=== PATIENT | female | born 1960 | race Caucasian/White ===

== ENCOUNTER → 2016-09-10 | Outpatient (CLI) | payer BC ==
--- OUTSIDE RECORDS SUMMARY | 2016-09-10 09:09 | XMS REPORT | Continuity of Care Document ---
Author Author [facility] Organization [facility] Address Unknown Phone Unavailable Allergies Medications Problems Date Dx Coded Attending Type Code Diagnosis Diagnosed By 09/10/2014 MARCIE ALTMAN MD Ot V76.12 09/13/2014 MARCIE ALTMAN MD Ot V76.12 09/13/2014 MARCIE ALTMAN MD Ot 793.80 09/12/2015 JERMAINE MUKHERJEE APRN Ot R06.02 Procedures Results Encounters ACCT No. Visit Date/Time Discharge Status Pt. Type Provider Facility Loc./Unit Complaint [id number] 12/03/2014 07:37:00 2014 23:59:59 CLS Outpatient STACIE BALL MD [facility] RAD [id number] 09/12/2014 07:45:00 2014 23:59:59 CLS Preadmit MARCIE ALTMAN MD [facility] RAD [id number] 09/07/2014 07:28:00 2014 23:59:59 CLS Outpatient MARCIE ALTMAN MD [facility] RAD [id number] 04/28/2013 09:29:00 2012 23:59:59 CLS Outpatient [id number] 08/26/2015 12:01:00 ACT Outpatient JERMAINE MUKHERJEE APRN [facility]
--- NOTE | 2016-09-11 12:36 | Diagnostic Imaging Report ---
Bilateral screening mammogram. The current study was also evaluated with a Computer Aided Detection (CAD) system. INDICATION: Screening. No current complaints stated on the questionnaire. COMPARISON: 09/07/2014. FINDINGS: The breasts are composed of scattered fibroglandular densities. There are occasional benign-appearing calcifications. Allowing for technique and positional differences, no suspicious change is seen. IMPRESSION: No significant change. ACR BI-RADS Category 2: Benign findings. Result letter will be mailed to the patient. Note: At least 10% of breast cancer is not imaged by mammography. Dictated by: Dictated on workstation # [id number]
== END ==
LOC: RAD 09:06
PROVIDERS: ATTEND Nurse Practitioner Family
DX: Z12.31 Encounter for screening mammogram for malignant neoplasm of breast (principal)
CPT/HCPCS: 77067

== ENCOUNTER → 2017-09-13 | Outpatient (CLI) | payer BC ==
--- NOTE | 2017-09-13 12:23 | Diagnostic Imaging Report ---
INDICATION: Routine screening. COMPARISON: 09/10/2016 and 09/07/2014. TECHNIQUE: Screening digital mammography was performed bilaterally with a Computer Aided Detection (CAD) system. FINDINGS: Moderate parenchymal heterogeneity and increased density are noted. The overall parenchymal pattern appears to be stable. No dominant mass or malignant appearing microcalcifications are seen. There are benign calcifications present. The axillae are unremarkable. IMPRESSION: No mammographic features suspicious for malignancy are identified. ACR BI-RADS Category 2: Benign findings. Result letter will be mailed to the patient. Note: At least 10% of breast cancer is not imaged by mammography. Dictated by: Dictated on workstation # [id number]
== END ==
LOC: RAD 07:47
PROVIDERS: ATTEND Nurse Practitioner Family
DX: Z12.31 Encounter for screening mammogram for malignant neoplasm of breast (principal)
CPT/HCPCS: 77067

== ENCOUNTER → 2018-10-24 | Outpatient (CLI) | payer BC ==
--- NOTE | 2018-10-24 09:35 | Diagnostic Imaging Report ---
Indication: Routine screening. Comparison is made with prior mammogram from 09/13/2017 and 09/10/2016. 2-D and 3-D bilateral screening mammography was performed with CAD. Both breasts are heterogeneously dense, limiting the sensitivity of mammography. The parenchymal pattern is stable. No mass or malignant-appearing microcalcifications are seen. The axillae are unremarkable. Impression: BI-RADS category 2 No mammographic features suspicious for malignancy are identified. ACR BI-RADS Category 2: Benign findings. Result letter will be mailed to the patient. Note: At least 10% of breast cancer is not imaged by mammography. Dictated by: Dictated on workstation # [id number]
== END ==
LOC: RAD 07:27
PROVIDERS: ATTEND Family Medicine
DX: Z12.31 Encounter for screening mammogram for malignant neoplasm of breast (principal)
CPT/HCPCS: 77067

== ENCOUNTER → 2019-04-20 | Outpatient (CLI) | payer BC ==
[2019-04-20 12:57] LABS: BASOPHILS % (AUTO) 0 % (0-10); EOSINOPHILS # (AUTO) 0.1 10^3/uL (0.0-0.3); EOSINOPHILS % (AUTO) 1 % (0-10); HEMATOCRIT 41 % (35-52); HEMOGLOBIN 13.5 G/DL (11.5-16.0); LYMPHOCYTES # (AUTO) 2.5 X 10^3 (1.0-4.0); LYMPHOCYTES % (AUTO) 20 % (12-44); MEAN CORPUSCULAR HEMOGLOBIN 29 PG (25-34); MEAN CORPUSCULAR HGB CONC 33 G/DL (32-36); MEAN CORPUSCULAR VOLUME 87 FL (80-99); MEAN PLATELET VOLUME 9.2 FL (7.4-10.4); MONOCYTES % (AUTO) 8 % (0-12); NEUTROPHILS # (AUTO) 8.7 X 10^3 (1.8-7.8); NEUTROPHILS % (AUTO) 71 % (42-75); PLATELET COUNT 279 10^3/uL (130-400); RED CELL DISTRIBUTION WIDTH 13.5 % (10.0-14.5); WHITE BLOOD COUNT 12.4 10^3/uL (4.3-11.0)
[2019-04-20 13:23] LABS: ALANINE AMINOTRANSFERASE 30 U/L (0-55); ALBUMIN 4.1 GM/DL (3.2-4.5); ALKALINE PHOSPHATASE 84 U/L (40-136); BILIRUBIN,TOTAL 0.6 MG/DL (0.1-1.0); BUN/CREATININE RATIO 16; CALCIUM 9.7 MG/DL (8.5-10.1); CARBON DIOXIDE 25 MMOL/L (21-32); CHLORIDE 103 MMOL/L (98-107); CREATININE SERUM 0.75 MG/DL (0.60-1.30); GFR ESTIMATED > 60; GLUCOSE 93 MG/DL (70-105); POTASSIUM 3.7 MMOL/L (3.6-5.0); SODIUM 136 MMOL/L (135-145); TOTAL PROTEIN 7.4 GM/DL (6.4-8.2)
== END ==
LOC: LAB 12:29
PROVIDERS: ATTEND Nurse Practitioner Family
DX: R07.9 Chest pain, unspecified (principal)
CPT/HCPCS: 36415; 80053; 84484; 85025; 93005

== ENCOUNTER → 2019-04-21 | Outpatient (CLI) | payer BC | LOC: LAB 13:43 | PROVIDERS: ATTEND Nurse Practitioner Family | DX: R07.9 Chest pain, unspecified (principal) | CPT/HCPCS: 36415; 84484 ==

== ENCOUNTER → 2019-12-12 | Outpatient (CLI) | payer BC ==
--- NOTE | 2019-12-12 21:33 | Diagnostic Imaging Report ---
Indication: Routine screening. Comparison is made with prior mammograms from 10/24/2018 and 09/13/2017. 2-D and 3-D bilateral screening mammography was performed with CAD. Both breasts are heterogeneously dense, limiting the sensitivity of mammography. Benign calcifications in the right breast are again noted. No mass or malignant appearing microcalcifications are identified. Axillae are unremarkable. IMPRESSION: BI-RADS Category 2 No mammographic features suspicious for malignancy are identified. ACR BI-RADS Category 2: Benign findings. Result letter will be mailed to the patient. Note: At least 10% of breast cancer is not imaged by mammography. Dictated by: Dictated on workstation # [id number]
== END ==
LOC: RAD 15:15
PROVIDERS: ATTEND Nurse Practitioner Family
DX: Z12.31 Encounter for screening mammogram for malignant neoplasm of breast (principal)
CPT/HCPCS: 77063; 77067

== ENCOUNTER → 2020-02-12 | Outpatient (CLI) | payer BC ==
[~2020-02-12] MED LIST: ESTR0.5T PO; HYDR25TA4 PO; OLME40TA18 PO; SIMV10TA26 PO; VERA120T10 PO
== END ==
LOC: LABNPT 08:30
PROVIDERS: ATTEND Internal Medicine
DX: Z01.818 Encounter for other preprocedural examination (principal); Z20.828 Contact with and (suspected) exposure to other viral communicable diseases
CPT/HCPCS: 87635

== ENCOUNTER 2020-02-13 09:40 | Outpatient (RCR) | payer BC ==
[~2020-02-13] VITALS: Ht 162 cm; Wt 98.0 kg
== END 2020-02-13 09:41 | disposition home or self-care (01) ==
LOC: PREOP 09:40
PROVIDERS: ATTEND Internal Medicine
DX: Z01.818 Encounter for other preprocedural examination (principal); R19.7 Diarrhea, unspecified; Z20.828 Contact with and (suspected) exposure to other viral communicable diseases

== ENCOUNTER 2020-02-16 09:25 | Day surgery (SDC) | payer BC ==
--- NOTE | 2020-02-12 08:26 | HISTORY AND PHYSICAL ---
DATE OF SERVICE: COLONOSCOPY HISTORY AND PHYSICAL HISTORY OF PRESENT ILLNESS: The patient is 59-year-old white female referred by JOSE G Bloom from Dr. Castro's office for colonoscopic evaluation of diarrhea with occult positive blood in stool. The patient reports approximately 5-week history of watery diarrhea without evidence for visible blood. She denies any associated cramping, but reports on average 10 loose stools per day. She was started on Flagyl several days ago and believes that there has been some improvement, although she has already had four stools today. She is not aware of any significant change in weight. She has no recent travel history. She did report, her last round of antibiotics was at least three months ago for which she took a 10-day course of an unknown antibiotic for reported sinus infection. The patient denies night sweats, chills or fever. PAST SURGICAL HISTORY: Significant for total abdominal hysterectomy at the age of 33. She had tonsillectomy and adenoidectomy at the age of 11. PAST MEDICAL HISTORY: Significant for hypertension, hyperlipidemia, reported distant past history of possible sarcoid for which there had been no activity for many years. There have been no other recent medication changes. She has no travel history and lives with the who is well with no diarrhea problems. SOCIAL HISTORY: She works at [employer] with no past smoking history and rare alcohol intake. FAMILY HISTORY: Grandmother had what sounds like diverticular disease, but no known history of malignancy, in her 80s. Father at the age of 84 of complications of cardiovascular disease. Mother at age 69 of what sounds like urosepsis while on biologic therapy for rheumatoid arthritis. REVIEW OF SYSTEMS: CONSTITUTIONAL: She denies night sweats, chills or fever. RESPIRATORY: The patient denies any problems with cough, wheezing or chest congestion. CARDIOVASCULAR: The patient denies chest pain, dyspnea on exertion, orthopnea, PND or pedal edema. GASTROINTESTINAL: As noted in the HPI. PHYSICAL EXAMINATION: GENERAL: Reveals pleasant white female in no acute distress. VITAL SIGNS: Weight 223 pounds, blood pressure 110/66. HEENT: Unremarkable. Mallampati 2 pharyngeal configuration. CHEST: Clear to auscultation. CARDIOVASCULAR: Revealed a regular rate and rhythm with a very soft 1 to 2/6 systolic ejection murmur heard best at second right intercostal space and left lower sternal border without evidence for pulsus, parvus or tardus. No S3 or S4 noted. ABDOMEN: Soft, supple without mass, organomegaly or tenderness. No bruits are noted. EXTREMITIES: Reveal no cyanosis, clubbing or edema. ASSESSMENT AND PLAN: The patient is being set up for diagnostic colonoscopy for evaluation of diarrhea and occult positive blood in stool. If there were no colonoscopic abnormalities, we will likely proceed with EGD evaluation to evaluate for any evidence for celiac disease. I thank you for the referral of this pleasant lady. Job ID: [id number] DocumentID: [id number] Dictated Date: 02/08/2020 18:19:05 Social Sciences Chair Date: 02/08/2020 18:52:06 Dictated By: RONALDO REEDER MD
[~2020-02-16] VITALS: Ht 162 cm; Wt 98.0 kg
[2020-02-16] MEDS ORDERED: LACTATED RINGERS 1,000 ML IV STA (09:35)
[2020-02-16] MEDS ORDERED: LACTATED RINGERS 1,000 ML IV ONE (09:36)
[2020-02-16] MEDS ORDERED: LIDOCAINE JELLY 2% 6 ML SYRINGE MM PRN (09:45)
[2020-02-16 09:48] VITALS: BP 134/87
[2020-02-16] MEDS ORDERED: PROPOFOL INJECTION 50 ML IV ONE (10:19)
[2020-02-16] MEDS ORDERED: MIDAZOLAM 2 MG/2 ML (VERSED) VIAL ONE (10:19)
[2020-02-16] MEDS ORDERED: LIDOCAINE JELLY 2% 6 ML SYRINGE ONE (10:29)
[2020-02-16 11:15] VITALS: BP 111/60
[2020-02-16 11:20] VITALS: BP 113/57
[2020-02-16 11:25] VITALS: BP 113/57
--- NOTE | 2020-02-16 11:26 | Pre-Op Note & Conscious Sedat ---
Pre-Operative Progress Note H&P Reviewed The H&P was reviewed, patient examined and no changes noted. Date H&P Reviewed: Feb 16, 2020 Time H&P Reviewed: 10:20 Conscious Sedation Pre-Proced ASA Score 2 For ASA 3 and 4: Consider anesthesia and medical clearance. Also, for patients with a history of failed moderate sedation consider anesthesia. Airway Lungs Heart ASA score ASA 1: a normal healthy patient ASA 2: a patient with a mild systemic disease (mid diabetes, controlled hypertension, obesity ASA 3: a patient with a severe systemic disease that limits activity (angina, COPD, prior Myocardial infarction) ASA 4: a patient with an incapacitating disease that is a constant threat to life (CHF, renal failure) ASA 5: a moribund patient not expected to survive 24 hrs. (ruptured aneurysm) ASA 6: a declared brain- patient whose organs are being harvested. For emergent operations, add the letter E after the classification Mallampati Classification Grade 3 Sedation Plan Analgesia, Amnesia, Plan communicated to team members, Discussed options with patient/fam, Discussed risks with patient/fam The patient is an appropriate candidate to undergo the planned procedure, sedation, and anesthesia. The patient immediately re-assessed prior to indication. RONALDO REEDER MD Feb 16, 2020 11:26
[2020-02-16 11:48] VITALS: BP 115/60
--- NOTE | 2020-02-16 12:30 | Anesthesia-General Post-Op ---
MAC Patient Condition Mental Status/LOC: Same as Preop Cardiovascular: Satisfactory Nausea/Vomiting: Absent Respiratory: Satisfactory Pain: Controlled Complications: Absent Post Op Complications Complications None Follow Up Care/Instructions Patient Instructions None needed. Anesthesiology Discharge Order Discharge Order Patient is doing well, no complaints, stable vital signs, no apparent adverse anesthesia problems. No complications reported per nursing. LYN LOPEZ CRNA Feb 16, 2020 12:30
--- NOTE | 2020-02-16 20:57 | OPERATIVE REPORT ---
DATE OF SERVICE: PANENDOSCOPY SUMMARY INDICATION FOR THE PROCEDURE: Panendoscopy is performed for evaluation of diarrhea with positive IFOB study. DESCRIPTION OF PROCEDURE: The patient was placed in the left lateral decubitus position. Prior to undergoing colonoscopy, digital rectal evaluation was performed. Anal sphincter tone was normal and the perianal reflexes intact. No abnormalities were noted on digital inspection of anal canal or distal rectal vault. The colonoscope was then inserted into the rectum and under direct visualization advanced to cecum. The cecum was identified by identification of the ileocecal valve and cecal strap. Photographic documentation was obtained. Careful inspection was made as the colonoscope withdrawn. The procedure was performed under Diprivan anesthesia. There was no evidence for internal or external hemorrhoids and the rectum was unremarkable. No evidence for inflammatory changes noted throughout the entirety of the colon. A rectal biopsy was obtained for evaluation for microscopic colitis. One diminutive sigmoid polyp was noted. It was biopsied and ablated and submitted for histopathology. No evidence for diverticular disease or inflammatory change was noted. Two other similar diminutive polyps were noted, one in the splenic flexure and the other one in the proximal transverse colon, also biopsied and ablated with no subsequent blood loss. The ascending colon and cecum were unremarkable as was the ileocecal valve. As there was no explanation for positive occult blood or diarrhea, we then proceeded with an EGD evaluation. The upper endoscope was inserted into the oral cavity and under direct visualization, esophagus was intubated. The scope was passed down the esophagus through the stomach and second portion of the duodenum. Careful inspection was made as the endoscope was withdrawn. FINDINGS: The posterior pharynx, arytenoid aperture, true and false vocal folds and epiglottis were unremarkable. The proximal and mid esophagus were unremarkable. A small hiatal hernia is present with some mild erythema at the Z line. Biopsy was obtained and submitted for histopathology. No evidence for erosive esophagitis was noted. The cardia, fundus and antrum of the stomach were unremarkable. The pylorus and pyloric channel were unremarkable. Several small abscess appearing whitish base erosions were noted. Distal along one wall of the duodenal bulb. It is along the anterior wall of the duodenal bulb. A biopsy was obtained. There was some mild erythema and loss of the usual villous appearance in the second portion of the duodenum. It was more diffuse in nature. A biopsy was obtained and submitted for histopathology. No evidence for ulceration was noted. ASSESSMENT: 1. Small hiatal hernia is present without evidence for erosive esophagitis. 2. Several shallow apices appearing erosions were noted along the anterior wall of the duodenal bulb with mild duodenitis. The patient denies aspirin, nonsteroidal use. Favor infectious etiology with biopsy is pending. The patient states that her diarrhea was abrupt in onset. Initially 10 to 12 times per day now, she is down to 3 or 4 loose stools all in the morning typically when she first wakes up without any associated cramping or blood. She has had no night sweats, chills or fever with usual energy level. The abrupt nature suggests an underlying infectious etiology of which the vast majority resolved and treated. She was advised for now to take one loperamide that she has at home at bedtime for the next week or two holding for constipation with further recommendations pending histopathology reporting. 3. In regards to colonoscopy as long as there are no suprises on histopathology would advocate repeat screening colonoscopy in 10 years. I thank you for the referral of this pleasant lady. Job ID: [id number] DocumentID: [id number] Dictated Date: 02/16/2020 12:11:53 Artificial Breeding Technician Date: 02/16/2020 20:55:29 Dictated By: RONALDO REEDER MD MTDD
== END 2020-02-16 11:55 | disposition home or self-care (01) ==
LOC: ENDO 09:25
PROVIDERS: ATTEND Internal Medicine
DX: K29.80 Duodenitis without bleeding (principal); K29.50 Unspecified chronic gastritis without bleeding; D12.3 Benign neoplasm of transverse colon; D12.5 Benign neoplasm of sigmoid colon; K22.70 Barrett's esophagus without dysplasia; I10 Essential (primary) hypertension; E78.5 Hyperlipidemia, unspecified; K44.9 Diaphragmatic hernia without obstruction or gangrene; R19.7 Diarrhea, unspecified; R19.5 Other fecal abnormalities

== ENCOUNTER → 2020-02-28 | Outpatient (CLI) | payer BC ==
--- NOTE | 2020-02-28 09:11 | Diagnostic Imaging Report ---
PROCEDURE: US Gallbladder. TECHNIQUE: Multiple Real-time grayscale images were obtained over the right upper quadrant in various projections. INDICATION: Abdominal pain and severe diarrhea. FINDINGS: The liver is normal in size at 16 cm. No discrete liver mass is identified. The portal vein is patent and shows normal direction of flow. The gallbladder is without stones or sludge. No wall thickening or biliary ductal dilatation is identified. The visualized pancreas is unremarkable. The aorta is nonaneurysmal. The IVC is patent. The right kidney is without calculus or hydronephrosis. There is no ascites. IMPRESSION: Unremarkable gallbladder ultrasound. Dictated by: Dictated on workstation # [id number]
== END ==
LOC: RAD 08:01
PROVIDERS: ATTEND Nurse Practitioner Family
DX: R19.7 Diarrhea, unspecified (principal); R10.9 Unspecified abdominal pain
CPT/HCPCS: 76705

== ENCOUNTER → 2021-03-27 | Outpatient (CLI) | payer BC ==
--- NOTE | 2021-03-27 09:23 | Diagnostic Imaging Report ---
Indication: Routine screening. Comparison is made with prior mammogram from 12/12/2019 and 10/24/2018. 2-D and 3-D bilateral screening mammography was performed with CAD. Both breasts are heterogeneously dense, limiting the sensitivity of mammography. Overall breast density appears to be increased since prior mammogram, perhaps owing to hormone replacement therapy. No mass or malignant-appearing microcalcifications are seen. There are benign calculus locations noted. Axillae are unremarkable. IMPRESSION: BI-RADS Category 2 No mammographic features suspicious for malignancy are identified. ACR BI-RADS Category 2: Benign findings. Result letter will be mailed to the patient. Note: At least 10% of breast cancer is not imaged by mammography. Dictated by: Dictated on workstation # [id number]
== END ==
LOC: RAD 07:27
PROVIDERS: ATTEND Family Medicine
DX: Z12.31 Encounter for screening mammogram for malignant neoplasm of breast (principal)
CPT/HCPCS: 77063; 77067

== ENCOUNTER → 2022-06-02 | Outpatient (CLI) | payer BC ==
[~2022-06-02] MED LIST changes: -VERA120T10 PO; +VERA120T74 PO
--- NOTE | 2022-06-02 15:37 | Diagnostic Imaging Report ---
EXAMINATION: 3D bilateral screening mammogram. The current study was also evaluated with a Computed Aided Detection (CAD) system. COMPARISON: This study was compared to the prior exams of 03/27/2021, 12/12/2019 and 10/24/2018. There are no current complaints. FINDINGS: The fibroglandular tissue in both breasts is heterogeneously dense. This does limit the sensitivity of this exam. When compared to the previous study there does not appear to have been any significant change. There is no primary or secondary sign of malignancy noted. IMPRESSION: There is no evidence for malignancy. BI-RADS CATEGORY: 1 NEGATIVE ACR BI-RADS Category 1: Negative. Result letter will be mailed to the patient. Note: At least 10% of breast cancer is not imaged by mammography. Dictated by: Dictated on workstation # [id number]
== END ==
LOC: RAD 07:23
PROVIDERS: ATTEND Family Medicine
DX: Z12.31 Encounter for screening mammogram for malignant neoplasm of breast (principal)
CPT/HCPCS: 77063; 77067

== ENCOUNTER 2022-07-23 11:04 | Outpatient (CLI) | payer BC ==
[~2022-07-23] VITALS: Ht 162.6 cm; Wt 95.5 kg
[2022-07-30] MEDS ORDERED: FURO-125 PO (07:47)
[2022-07-30] MEDS ORDERED: LACT1CAP74 PO (07:47)
[2022-07-30] MEDS ORDERED: OMEG1CAP58 PO (07:47)
[2022-07-30] MEDS ORDERED: POTA-51 PO (07:47)
[2022-07-30] MEDS ORDERED: CHOL200078 PO (07:47)
[2022-07-30] MEDS ORDERED: SPIR25TA PO (07:47)
== END 2022-07-30 07:54 | disposition home or self-care (01) ==
LOC: PREOP 11:04
PROVIDERS: ATTEND Specialist
DX: Z01.818 Encounter for other preprocedural examination (principal)

== ENCOUNTER 2022-07-31 08:01 | Day surgery (SDC) | payer BC ==
[~2022-07-31] VITALS: Ht 162.6 cm; Wt 95.5 kg
[~2022-07-31 08:01] MED LIST changes: +CHOL200078 PO; +FURO-125 PO; +LACT1CAP74 PO; +OMEG1CAP58 PO; +POTA-51 PO; +SPIR25TA PO
[2022-07-31] MEDS: TETRACAINE 0.5% OPHTH SOLN 4 ML BTL (SINGLE DOSE ONLY) OU PRN ×4 (08:28→08:44)
[2022-07-31] MEDS ORDERED: POVIDONE (BETADINE) OPHTH SOLN 5% 30 ML OP ONE (08:30)
[2022-07-31] MEDS ORDERED: MOXIFLOXACIN OPHTH SOLN 5 MG/ML 0.3 ML SYRINGE OP ONE (08:30)
[2022-07-31] MEDS ORDERED: TIMOLOL 0.5% (CATARACTS) 0.3 ML BTL OU PRN (08:30)
[2022-07-31] MEDS: PHENYLEPHRINE 10% OPHTH (NEO-SYN) 5 ML BTL OU SCH ×3 (08:34→08:44)
[2022-07-31] MEDS: TROPICAMIDE 1% OPH SOLN (MYDRIACYL) 15 ML BTL OP SCH ×3 (08:34→08:44)
[2022-07-31 08:36] VITALS: BP 162/88
[2022-07-31] MEDS ORDERED: MIDAZOLAM 2 MG/2 ML (VERSED) VIAL ONE (08:45)
--- NOTE | 2022-07-31 09:00 | Ophthalmologist Pre-Op Note ---
Pre-Operative Progress Note H&P Reviewed The H&P was reviewed, patient examined and no changes noted. Date H&P Reviewed: Jul 31, 2022 Time H&P Reviewed: 09:00 Pre-Op Dx Cataract, Right Eye JINA CAI MD Jul 31, 2022 09:00
--- NOTE | 2022-07-31 09:18 | Ophthalmology Operative Report ---
Cataract removal/placement IOL PREOPERATIVE DIAGNOSIS: Cataract Right Eye POSTOPERATIVE DIAGNOSIS: Cataract Right Eye PROCEDURE: Cataract removal and placement of posterior chamber implant, right eye SURGEON: Lv Cai ANESTHESIA: Topical with sedation COMPLICATIONS: None ESTIMATED BLOOD LOSS: Minimal DESCRIPTION OF PROCEDURE: After proper informed consent was obtained, the patient, a 61 female, was taken to the Operating Room and the right eye was anesthetized with tetracaine. The right eye was then prepped and draped in the usual manner. A wire lid speculum was placed. A paracentesis was made at the left hand position. Preservative free lidocaine was injected into the anterior chamber followed by viscoelastic. A clear corneal incision was made in the temporal position. A capsulorrhexis was preformed and the central nuclear and cortical material were removed. The posterior capsule was polished and John Paul 19.0 AU00T0 IOL was placed into the capsular bag. The residual viscoelastic was aspirated and balanced saline solution was injected into the anterior chamber. Moxifloxacin was injected into the anterior chamber. The wound was checked and found to be water tight. The patient tolerated the procedure well without complications. LV CAI MD Jul 31, 2022 09:18
[2022-07-31 09:35] VITALS: BP 150/80
--- NOTE | 2022-07-31 09:52 | Anesthesia-General Post-Op ---
MAC Patient Condition Mental Status/LOC: Same as Preop Cardiovascular: Satisfactory Nausea/Vomiting: Absent Respiratory: Satisfactory Pain: Controlled Complications: Absent Post Op Complications Complications None Follow Up Care/Instructions Patient Instructions None needed. Anesthesiology Discharge Order Discharge Order Patient was doing well this morning after the procedure with no complaints, stable vital signs, no apparent adverse anesthesia problems. No complications reported per nursing. JOSEY HERNANDEZ DO Jul 31, 2022 09:52
[2022-07-31] MEDS ORDERED: acetaZOLAMIDE ER 500 MG CAP (DIAMOX SEQUELS) PO ONE (12:00)
== END 2022-07-31 09:36 | disposition home or self-care (01) ==
LOC: SDC 08:01
PROVIDERS: ATTEND Specialist
DX: H25.9 Unspecified age-related cataract (principal); E66.9 Obesity, unspecified; Z68.36 Body mass index [BMI] 36.0-36.9, adult
CPT/HCPCS: 66984; V2632

== ENCOUNTER 2022-08-14 06:17 | Day surgery (SDC) | payer BC ==
[~2022-08-14] VITALS: Wt 95.5 kg
[2022-08-14 06:23] VITALS: BP 160/89
[2022-08-14] MEDS: TETRACAINE 0.5% OPHTH SOLN 4 ML BTL (SINGLE DOSE ONLY) OU PRN ×4 (06:28→06:44)
[2022-08-14] MEDS ORDERED: MOXIFLOXACIN OPHTH SOLN 5 MG/ML 0.3 ML SYRINGE OP ONE (06:30)
[2022-08-14] MEDS ORDERED: TIMOLOL 0.5% (CATARACTS) 0.3 ML BTL OU PRN (06:30)
[2022-08-14] MEDS ORDERED: POVIDONE (BETADINE) OPHTH SOLN 5% 30 ML OP ONE (06:30)
[2022-08-14] MEDS: TROPICAMIDE 1% OPH SOLN (MYDRIACYL) 15 ML BTL OP SCH ×3 (06:38→06:46)
[2022-08-14] MEDS: PHENYLEPHRINE 10% OPHTH (NEO-SYN) 5 ML BTL OU SCH ×3 (06:39→06:46)
[2022-08-14] MEDS ORDERED: MIDAZOLAM 2 MG/2 ML (VERSED) VIAL ONE (07:01)
--- NOTE | 2022-08-14 07:18 | Ophthalmologist Pre-Op Note ---
Pre-Operative Progress Note H&P Reviewed The H&P was reviewed, patient examined and no changes noted. Date H&P Reviewed: Aug 14, 2022 Time H&P Reviewed: 07:18 Pre-Op Dx Cataract, Left Eye JINA CAI MD Aug 14, 2022 07:18
--- NOTE | 2022-08-14 07:42 | Ophthalmology Operative Report ---
Cataract removal/placement IOL PREOPERATIVE DIAGNOSIS: Cataract Left Eye POSTOPERATIVE DIAGNOSIS: Cataract Left Eye PROCEDURE: Cataract removal and placement of posterior chamber implant, left eye SURGEON: Lv Cai ANESTHESIA: Topical with sedation COMPLICATIONS: None ESTIMATED BLOOD LOSS: Minimal DESCRIPTION OF PROCEDURE: After proper informed consent was obtained, the patient, a 61 female, was taken to the Operating Room and the left eye was anesthetized with tetracaine. The left eye was then prepped and draped in the usual manner. A wire lid speculum was placed. A paracentesis was made at the left hand position. Preservative free lidocaine was injected into the anterior chamber followed by viscoelastic. A clear corneal incision was made in the temporal position. A capsulorrhexis was preformed and the central nuclear and cortical material were removed. The posterior capsule was polished and an John Paul 19.5 AU00T0 was placed into the capsular bag. The residual viscoelastic was aspirated and balanced saline solution was injected into the anterior chamber. Moxifloxacin was injected into the anterior chamber. The wound was checked and found to be water tight. The patient tolerated the procedure well without complications. LV CAI MD Aug 14, 2022 07:42
[2022-08-14] MEDS ORDERED: acetaZOLAMIDE ER 500 MG CAP (DIAMOX SEQUELS) PO ONE (10:00)
--- NOTE | 2022-08-14 12:58 | Anesthesia-General Post-Op ---
MAC Patient Condition Mental Status/LOC: Same as Preop Cardiovascular: Satisfactory Nausea/Vomiting: Absent Respiratory: Satisfactory Pain: Controlled Complications: Absent Post Op Complications Complications None Follow Up Care/Instructions Patient Instructions None needed. Anesthesiology Discharge Order Discharge Order Patient is doing well, no complaints, stable vital signs, no apparent adverse anesthesia problems. No complications reported per nursing. EH JACOME CRNA Aug 14, 2022 12:58
== END 2022-08-14 07:50 | disposition home or self-care (01) ==
LOC: SDC 06:17
PROVIDERS: ATTEND Specialist
DX: H25.9 Unspecified age-related cataract (principal)
CPT/HCPCS: 66984; V2632